=== PATIENT | female | born 1975 | race Caucasian/White ===

== ENCOUNTER 2024-03-12 18:41 | Emergency (ER) | payer OTHER ==
[~2024-03-12] VITALS: Ht 167.6 cm; Wt 127.0 kg
[2024-03-12 19:45] VITALS: BP_SYST 134; PULSE 62; RESP 18; TEMP 98.2; O2SAT 99
[2024-03-12 20:08] LABS: BASOPHILS % (AUTO) 0.5 % (0.0-2.0); BILIRUBIN,URINE NEGATIVE (NEGATIVE); BLOOD, URINE 1+ (NEGATIVE); CLARITY/URINE CLEAR (CLEAR); COLOR,URINE YELLOW (YELLOW); EOSINOPHILS % (AUTO) 0.5 % (0.0-4.0); GLUCOSE,URINE NEGATIVE (NEGATIVE); HEMATOCRIT 30.2 % (36-48); HEMOGLOBIN 9.5 g/dL (12.0-16.0); KETONES,URINE NEGATIVE (NEGATIVE); LEUKOCYTE ESTERASE ,URINE NEGATIVE (NEGATIVE); LYMPHOCYTES # (AUTO) 1.3 K/uL (1.0-5.5); MEAN CORPUSCULAR HEMOGLOBIN 22 pg (27-31); MEAN CORPUSCULAR HGB CONC 31 % (32-36); MEAN CORPUSCULAR VOLUME 70 fL (79.0-98.0); MONOCYTES # (AUTO) 0.4 K/uL (0.0-1.0); MONOCYTES % (AUTO) 4.4 % (1.7-9.3); NEUTROPHILS # (AUTO) 7.1 K/uL (1.8-7.7); NEUTROPHILS % (AUTO) 79.6 % (40.0-70.0); NITRITE, URINE NEGATIVE (NEGATIVE); PLATELET COUNT (AUTO) 441 K/uL (130-430); PROTEIN URINE NEGATIVE (NEGATIVE); RED BLOOD CELL COUNT(AUTO) 4.34 MIL/uL (4.2-6.2); RED CELL DISTRIBUTION WIDTH 17.5 % (9.0-15.0); UROBILINOGEN,URINE 0.2 (0.2-1.0); WHITE BLOOD COUNT (AUTO) 8.9 K/uL (4.8-10.8)
[2024-03-12] MEDS: HYDROcodone/ACETAMIN 5-325 MG TAB (NORCO/ VICODIN) PO ONE (20:11)
[2024-03-12] MEDS: HYDROcodone/ACETAMIN 7.5-325 MG TAB PO ONE (20:11)
[2024-03-12 20:35] LABS: ALBUMIN 3.7 g/dL (3.4-4.8); BACTERIA,URINE FEW /HPF (None Seen); BILIRUBIN,DIRECT 0.1 mg/dL (0.0-0.3); CALCIUM 8.7 mg/dL (8.4-11.0); CREATININE 0.74 mg/dL (0.55-1.30); POTASSIUM 3.8 mmol/L (3.5-5.1); TOTAL BILIRUBIN 0.2 mg/dL (0.0-1.0); TOTAL PROTEIN, SERUM 7.4 g/dL (6.4-8.3); WBC,URINE 0-3 /HPF (0-3)
[2024-03-12] MEDS ORDERED: TRAM50TA2 PO (20:51)
[2024-03-12 21:05] VITALS: BP_SYST 134; PULSE 60; RESP 16; TEMP 98.3; O2SAT 98
[2024-03-12 21:52] LABS: ANISOCYTOSIS 1+; HYPOCHROMASIA 2+; OVALOCYTES MODERATE; STOMATOCYTES FEW
[2024-03-12] MEDS ORDERED: HYDROcodone/ACETAMIN 5-325 MG TAB (NORCO/ VICODIN) ONE (23:48)
== END 2024-03-12 21:05 | disposition home or self-care (01) ==
LOC: SED 18:41
DX: R10.9 Unspecified abdominal pain (principal); Z90.49 Acquired absence of other specified parts of digestive tract; Z98.890 Other specified postprocedural states; Z88.1 Allergy status to other antibiotic agents
CPT/HCPCS: 36415; 80048; 80076; 81000; 81001; 81015; 83690; 85025; 99284